=== PATIENT | female | born 1965 | race Caucasian/White ===

== ENCOUNTER 2022-07-29 10:18 | Emergency (ER) | payer BC ==
[~2022-07-29] VITALS: Ht 162.6 cm; Wt 98.4 kg
[~2022-07-29 10:18] MED LIST: PROG100
[2022-07-29 11:00] LABS: BASOPHILS ABSOLUTE AUTO 0.07 K/mm3 (0.00-0.23); BASOPHILS PERCENT AUTO 0 % (0-2); EOSINOPHILS ABSOLUTE AUTO 0.09 K/mm3 (0.00-0.68); EOSINOPHILS PERCENT AUTO 0 % (0-6); Hemoglobin 14.5 g/dL (11.5-16.0); IMMATURE GRAN ABSOLUTE AUTO 0.08 K/mm3 (0.00-0.10); IMMATURE GRAN PERCENT AUTO 0 % (0-1); LYMPHOCYTES ABSOLUTE AUTO 1.31 K/mm3 (0.84-5.20); LYMPHOCYTES PERCENT AUTO 6 % (21-46); MONOCYTES ABSOLUTE AUTO 1.23 K/mm3 (0.16-1.47); MONOCYTES PERCENT AUTO 6 % (4-13); Mean Corpuscular HGB Conc 33.7 g/dL (31.5-36.5); Mean Corpuscular Volume 89 fL (80-100); Mean Platelet Volume 10.2 fL (9.1-12.4); NEUTROPHILS ABSOLUTE AUTO 19.47 K/mm3 (1.96-9.15); NEUTROPHILS PERCENT AUTO 88 % (41-73); Platelet Count 370 K/mm3 (150-400); RDW Coefficient Variation 13.6 % (11.7-14.2); RDW Standard Deviation 44.5 fL (35.1-46.3); Red Blood Cell Count 4.83 M/mm3 (3.80-5.20); White Blood Cell Count 22.25 K/mm3 (4.00-11.30)
[2022-07-29 11:20] LABS: Albumin, Blood 3.5 g/dL (3.4-5.0); Albumin/Globulin Ratio 0.9 (0.8-1.8); Bilirubin, Total 0.7 mg/dL (0.1-1.0); Bun/Creatinine Ratio 10.3 (12.0-20.0); Calcium, Blood 9.4 mg/dL (8.5-10.1); Creatinine, Blood 0.49 mg/dL (0.40-1.00); Globulin, Blood 3.9 g/dL (2.2-4.0); Potassium, Blood 3.2 mmol/L (3.5-5.5); Total Protein, Blood 7.4 g/dL (6.4-8.2)
[2022-07-29 12:40] LABS: Influenza A, PCR NEGATIVE (NEGATIVE); Influenza B, PCR NEGATIVE (NEGATIVE); Resp Syncytial Virus, PCR NEGATIVE (NEGATIVE); SARS-Cov-2 (COVID-19) PCR, MMC NEGATIVE (NEGATIVE)
[2022-07-29] MEDS ORDERED: BUDESONIDE-FO10.2 G2 INH (13:41)
[2022-07-29] MEDS ORDERED: AMLODIPINE BESY10 MG PO (13:42)
[2022-07-29] MEDS ORDERED: ZESTRIL40 M1 PO (13:42)
[2022-07-29] MEDS ORDERED: BUPROPION XL150 M1 PO (13:43)
[2022-07-29] MEDS ORDERED: Ventolin/Prove6.7 GM (13:43)
[2022-07-29] MEDS ORDERED: Bentyl10 MG PO (13:43)
[2022-07-29] MEDS ORDERED: FLUT.05NI (13:44)
[2022-07-29] MEDS ORDERED: OMEPRAZOLE MAGN20 M1 PO (13:44)
[2022-07-29] MEDS ORDERED: Ventolin5 MG/1 ML INH (13:45)
[2022-07-29] MEDS ORDERED: DOXY100 PO ×2 (15:04→15:19)
[2022-07-29] MEDS ORDERED: AMOCLA875 PO ×2 (15:04→15:19)
== END 2022-07-29 16:14 | disposition home or self-care (01) ==
LOC: ER 10:18
PROVIDERS: Physician Assistant; Student in an Organized Health Care Education/Training Program
DX: J18.9 Pneumonia, unspecified organism (principal); R07.9 Chest pain, unspecified; J45.909 Unspecified asthma, uncomplicated; Z20.822 Contact with and (suspected) exposure to COVID-19; E87.6 Hypokalemia
CPT/HCPCS: 0241U; 36415; 71046; 71260; 80053; 83690; 83880; 84484; 85025; 85379; 93005; 93010; A9270; J0456; J0696; J7050; Q9967

== ENCOUNTER 2022-08-23 12:15 | Emergency (ER) | payer BC ==
[~2022-08-23] VITALS: Ht 162.6 cm; Wt 95.2 kg
[~2022-08-23 12:15] MED LIST changes: +AMLODIPINE BESY10 MG PO; +AMOCLA875 PO; +BUDESONIDE-FO10.2 G2 INH; +BUPROPION XL150 M1 PO; +Bentyl10 MG PO; +DOXY100 PO; +FLUT.05NI; +OMEPRAZOLE MAGN20 M1 PO; +Ventolin/Prove6.7 GM; +Ventolin5 MG/1 ML INH; +ZESTRIL40 M1 PO
[2022-08-23 13:10] LABS: BASOPHILS ABSOLUTE AUTO 0.08 K/mm3 (0.00-0.23); BASOPHILS PERCENT AUTO 1 % (0-2); EOSINOPHILS ABSOLUTE AUTO 0.33 K/mm3 (0.00-0.68); EOSINOPHILS PERCENT AUTO 3 % (0-6); Hematocrit 42.7 % (33.0-51.0); Hemoglobin 15.1 g/dL (11.5-16.0); IMMATURE GRAN ABSOLUTE AUTO 0.05 K/mm3 (0.00-0.10); IMMATURE GRAN PERCENT AUTO 1 % (0-1); LYMPHOCYTES ABSOLUTE AUTO 1.71 K/mm3 (0.84-5.20); LYMPHOCYTES PERCENT AUTO 16 % (21-46); MONOCYTES ABSOLUTE AUTO 1.11 K/mm3 (0.16-1.47); MONOCYTES PERCENT AUTO 10 % (4-13); Mean Corpuscular HGB 30.8 pg (26.0-34.0); Mean Corpuscular HGB Conc 35.4 g/dL (31.5-36.5); Mean Corpuscular Volume 87 fL (80-100); Mean Platelet Volume 9.7 fL (9.1-12.4); NEUTROPHILS ABSOLUTE AUTO 7.47 K/mm3 (1.96-9.15); NEUTROPHILS PERCENT AUTO 70 % (41-73); Platelet Count 409 K/mm3 (150-400); RDW Coefficient Variation 13.4 % (11.7-14.2); RDW Standard Deviation 42.6 fL (35.1-46.3); White Blood Cell Count 10.75 K/mm3 (4.00-11.30)
[2022-08-23 13:29] LABS: Albumin, Blood 3.6 g/dL (3.4-5.0); Albumin/Globulin Ratio 0.8 (0.8-1.8); Bilirubin, Total 0.5 mg/dL (0.1-1.0); Calcium, Blood 9.2 mg/dL (8.5-10.1); Creatinine, Blood 0.5 mg/dL (0.40-1.00); Globulin, Blood 4.3 g/dL (2.2-4.0); Total Protein, Blood 7.9 g/dL (6.4-8.2)
[2022-08-23 13:48] LABS: Influenza A, PCR NEGATIVE (NEGATIVE); Influenza B, PCR NEGATIVE (NEGATIVE); Resp Syncytial Virus, PCR NEGATIVE (NEGATIVE); SARS-Cov-2 (COVID-19) PCR, MMC NEGATIVE (NEGATIVE)
== END 2022-08-23 16:03 | disposition home or self-care (01) ==
LOC: ER 12:15
PROVIDERS: Emergency Medicine
DX: M54.6 Pain in thoracic spine (principal); R06.02 Shortness of breath; E87.1 Hypo-osmolality and hyponatremia; R53.83 Other fatigue; J45.909 Unspecified asthma, uncomplicated; Z20.822 Contact with and (suspected) exposure to COVID-19; Z88.6 Allergy status to analgesic agent; Z79.899 Other long term (current) drug therapy; Z87.891 Personal history of nicotine dependence
CPT/HCPCS: 0241U; 36415; 71046; 80053; 84484; 85025; 93005; 93010; 99284-25; J7030

== ENCOUNTER 2022-10-14 12:08 | Emergency (ER) | payer BC ==
[2022-10-14] MEDS ORDERED: Amoxicillin875 MG PO (15:49)
[2022-10-14] MEDS ORDERED: Prednisone20 MG PO (15:49)
== END 2022-10-14 16:05 | disposition home or self-care (01) ==
DX: R05.9 Cough, unspecified (principal); I10 Essential (primary) hypertension; J45.909 Unspecified asthma, uncomplicated; Z79.899 Other long term (current) drug therapy; Z88.8 Allergy status to other drugs, medicaments and biological substances; Z87.891 Personal history of nicotine dependence; Z20.822 Contact with and (suspected) exposure to COVID-19

== ENCOUNTER 2023-01-25 11:35 | Emergency (ER) | payer BC ==
[~2023-01-25] VITALS: Ht 162.6 cm; Wt 94.8 kg
[~2023-01-25 11:35] MED LIST changes: +Amoxicillin875 MG PO; +Prednisone20 MG PO
[2023-01-25 12:21] LABS: BASOPHILS ABSOLUTE AUTO 0.07 K/mm3 (0.00-0.23); BASOPHILS PERCENT AUTO 1 % (0-2); EOSINOPHILS ABSOLUTE AUTO 0.62 K/mm3 (0.00-0.68); EOSINOPHILS PERCENT AUTO 4 % (0-6); Hemoglobin 13.7 g/dL (11.5-16.0); IMMATURE GRAN ABSOLUTE AUTO 0.03 K/mm3 (0.00-0.10); IMMATURE GRAN PERCENT AUTO 0 % (0-1); LYMPHOCYTES ABSOLUTE AUTO 1.51 K/mm3 (0.84-5.20); LYMPHOCYTES PERCENT AUTO 11 % (21-46); MONOCYTES ABSOLUTE AUTO 1.12 K/mm3 (0.16-1.47); MONOCYTES PERCENT AUTO 8 % (4-13); Mean Corpuscular HGB 30.2 pg (26.0-34.0); Mean Corpuscular HGB Conc 34.3 g/dL (31.5-36.5); Mean Corpuscular Volume 88 fL (80-100); Mean Platelet Volume 10.4 fL (9.1-12.4); NEUTROPHILS ABSOLUTE AUTO 10.71 K/mm3 (1.96-9.15); NEUTROPHILS PERCENT AUTO 76 % (41-73); Platelet Count 444 K/mm3 (150-400); RDW Standard Deviation 41.4 fL (35.1-46.3); Red Blood Cell Count 4.54 M/mm3 (3.80-5.20); White Blood Cell Count 14.06 K/mm3 (4.00-11.30)
[2023-01-25 12:38] LABS: Albumin, Blood 3.1 g/dL (3.4-5.0); Albumin/Globulin Ratio 0.8 (0.8-1.8); Bilirubin, Total 0.4 mg/dL (0.1-1.0); Bun/Creatinine Ratio 12.1 (12.0-20.0); Creatinine, Blood 0.41 mg/dL (0.40-1.00); Globulin, Blood 3.9 g/dL (2.2-4.0); Potassium, Blood 3.8 mmol/L (3.5-5.5)
[2023-01-25 13:43] LABS: Source, Urine Clean Catch
[2023-01-25 14:03] LABS: Appearance, Urine Hazy (Clear); Bilirubin, Urine Neg (Neg); Blood, Urine 3+ (Neg); Color, Urine Yellow (P-Yellow); Glucose Qualitative, Urine Neg (Neg); Ketones, Urine Neg (Neg); Leukocyte Esterase, Urine 2+ (Neg); Nitrite, Urine Neg (Neg); Protein, Urine 1+ (Neg); Specific Gravity, Urine 1.015 (1.003-1.022); Urobilinogen, Urine NORM (Normal)
[2023-01-25 14:35] LABS: Red Blood Cells, Urine 0-2 /hpf (0-2)
[2023-01-25 14:36] LABS: Bacteria Mod /hpf; Squamous Epithelial Cells Mod /hpf (Few)
[2023-01-25 16:38] LABS: International Normalized Ratio 0.98; Prothrombin Time Results 10.3 Sec (9.7-11.5)
[2023-01-25 18:16] LABS: Automated BF RBC Count 0.005 M/mm3 (0-0); Automated BF WBC Count 3.984 K/mm3 (0-999)
[2023-01-25 18:18] LABS: Body Fluid WBC Count 3984 /mm3 (0-999); RBC Count, Body Fluid 5000 /mm3 (0-0)
[2023-01-25 18:37] LABS: Glucose, Body Fluid 95 mg/dL; Lactate Dehydrogenase, Body Fl 208 U/L; Protein, Body Fluid 4.3 g/dL
[2023-01-25 18:39] LABS: Appearance, Body Fluid Hazy (Clear); Color, Body Fluid Yellow (None-Yellow)
[2023-01-25 18:52] LABS: Total Cell Count, Body Fluid 100
[2023-01-25] MEDS ORDERED: AMOCLA875 PO ×3 (19:18→19:19)
[2023-01-26] MEDS ORDERED: AMOCLA875 PO (09:43)
[2023-01-26] MEDS ORDERED: OXYC1L PO (09:48)
== END 2023-01-25 19:30 | disposition home or self-care (01) ==
LOC: ER 11:35
PROVIDERS: Emergency Medicine; Student in an Organized Health Care Education/Training Program
DX: J90 Pleural effusion, not elsewhere classified (principal); D72.829 Elevated white blood cell count, unspecified; J45.909 Unspecified asthma, uncomplicated; I10 Essential (primary) hypertension; G51.0 Bell's palsy; F17.290 Nicotine dependence, other tobacco product, uncomplicated; Z79.899 Other long term (current) drug therapy; Z88.6 Allergy status to analgesic agent
CPT/HCPCS: 32555; 36415; 71045; 71046; 71260; 80053; 81001; 82945; 83615; 83880; 84157; 84484; 85025; 85610; 85730; 87077; 87086; 87186; 89051; A9270; Q9967

== ENCOUNTER 2023-01-26 07:56 | Emergency (ER) | payer BC ==
[~2023-01-26] VITALS: Ht 188 cm; Wt 95.9 kg
[2023-01-26 09:02] LABS: BASOPHILS ABSOLUTE AUTO 0.07 K/mm3 (0.00-0.23); BASOPHILS PERCENT AUTO 0 % (0-2); EOSINOPHILS ABSOLUTE AUTO 0.93 K/mm3 (0.00-0.68); EOSINOPHILS PERCENT AUTO 6 % (0-6); Hematocrit 41.5 % (33.0-51.0); IMMATURE GRAN ABSOLUTE AUTO 0.06 K/mm3 (0.00-0.10); IMMATURE GRAN PERCENT AUTO 0 % (0-1); LYMPHOCYTES ABSOLUTE AUTO 1.88 K/mm3 (0.84-5.20); LYMPHOCYTES PERCENT AUTO 12 % (21-46); MONOCYTES ABSOLUTE AUTO 1.36 K/mm3 (0.16-1.47); MONOCYTES PERCENT AUTO 9 % (4-13); Mean Corpuscular HGB 29.8 pg (26.0-34.0); Mean Corpuscular HGB Conc 33.7 g/dL (31.5-36.5); Mean Corpuscular Volume 88 fL (80-100); Mean Platelet Volume 10.4 fL (9.1-12.4); NEUTROPHILS PERCENT AUTO 73 % (41-73); Platelet Count 446 K/mm3 (150-400); RDW Coefficient Variation 12.9 % (11.7-14.2)
[2023-01-26 09:19] LABS: Albumin/Globulin Ratio 0.8 (0.8-1.8); Bilirubin, Total 0.5 mg/dL (0.1-1.0); Bun/Creatinine Ratio 9.9 (12.0-20.0); Calcium, Blood 9.1 mg/dL (8.5-10.1); Creatinine, Blood 0.51 mg/dL (0.40-1.00)
[2023-01-26] MEDS ORDERED: AMOCLA875 PO (09:43)
[2023-01-26] MEDS ORDERED: OXYC1L PO (09:48)
== END 2023-01-26 09:59 | disposition home or self-care (01) ==
LOC: ER 07:56
PROVIDERS: Physician Assistant
DX: J90 Pleural effusion, not elsewhere classified (principal); J45.909 Unspecified asthma, uncomplicated; F17.290 Nicotine dependence, other tobacco product, uncomplicated; Z88.6 Allergy status to analgesic agent; Z79.899 Other long term (current) drug therapy; Z98.890 Other specified postprocedural states
CPT/HCPCS: 71046; 80053; 84484; 85025; J1170

== ENCOUNTER → 2023-10-02 | Outpatient (CLI) | payer BC ==
[~2023-10-02] MED LIST changes: +AZIT250 PO; +METPRE4DP PO; +OXYC1L PO
== END ==
LOC: LAB SHORT 06:35 → LAB 06:35
DX: J18.9 Pneumonia, unspecified organism (principal)
CPT/HCPCS: 87070; 87077; 87185; 87205

== ENCOUNTER 2024-11-03 07:22 | Day surgery (SDC) | payer BC ==
[~2024-11-03] VITALS: Ht 162.6 cm; Wt 99.5 kg
[~2024-11-03 07:22] MED LIST changes: +BENZONATATE100 MG PO; +FAMO10 PO; +PSEU120ER PO
[2024-11-03] MEDS ORDERED: DUPIXENT P200 MG/1.1 SQ (08:08)
[2024-11-03] MEDS ORDERED: SPIRIVA RESPIMAT4 G3 IH (08:09)
[2024-11-03] MEDS ORDERED: Lactated Ringer's 1,000 ML IV ONE (08:19)
--- NOTE | 2024-11-03 09:03 | NUR ---
11/03/24 0903 HOMER RAYA PT UP TO RESTROOM TO VOID AGAIN PRIOR TO SURGERY
[2024-11-03] MEDS ORDERED: EPINEPhrine HCl 1 MG / ML 30ML Vial ONE (09:09)
[2024-11-03] MEDS ORDERED: Lidocaine 2%-Epineph 1:200000 20 ML SDV ONE (09:10)
[2024-11-03] MEDS ORDERED: propofoL 100 ML IV ONE (09:18)
[2024-11-03] MEDS ORDERED: Dexamethasone Sod Phos 10 MG/ML 1ML VIAL ONE (09:19)
[2024-11-03] MEDS ORDERED: Metoclopramide HCl 5MG / ML 2ML Vial ONE (09:19)
[2024-11-03] MEDS ORDERED: HYDROmorphone HCl/Pf 1MG SYR ONE (09:19)
[2024-11-03] MEDS ORDERED: Ondansetron HCl 2 MG / ML 2ML Vial ONE (09:19)
[2024-11-03] MEDS ORDERED: DiphenhydrAMINE HCl 50 MG/ML 1ML Vial ONE (09:20)
[2024-11-03] MEDS ORDERED: Lidocaine HCl 4% 5 ML SDA ONE (09:23)
[2024-11-03] MEDS ORDERED: Phenylephrine HCl 100 MCG/ML-NS 10MLSYR (1MG/10ML) ONE ×2 (09:37→10:15)
[2024-11-03] MEDS ORDERED: propofoL 40 ML IV ONE (09:38)
[2024-11-03] MEDS ORDERED: Rocuronium Bromide 10 MG/ML 5ML Injection IV ONE (09:39)
[2024-11-03] MEDS ORDERED: Sugammadex Sodium 200 MG/2ML SDV (100 MG/ML) ONE (09:39)
[2024-11-03] MEDS ORDERED: Lidocaine 2%-Epineph 1:200000 20 ML SDV XX ONE ×2 (09:55)
[2024-11-03] MEDS ORDERED: EPINEPhrine HCl 1 MG/ML 1ML Amp XX ONE (09:56)
--- NOTE | 2024-11-03 11:14 | NUR ---
11/03/24 1114 Tom Berry PT CAME IN PACU FROM OR. SUCTIONED MOUTH FROM SOME BLEEDING. 10L/MIN O2 FACE TENT PLACED ON PATIENT. 3-LEAD STARTED. MUSTACHE DRESSING PLACED FROM SOME NOSE BLEEDING.
[2024-11-03] MEDS ORDERED: OxyCODONE HCL 5 MG TAB ONE (11:42)
[2024-11-03 11:48] VITALS: BP 116/74
--- NOTE | 2024-11-03 12:41 | NUR ---
11/03/24 1241 Catie Carmona LATE ENTRY FOR 1210-ASSUMED CARE OF PATIENT FROM [facility] PERRY AND [facility] JON[facility]. PT STATES NO NAUSEA AND PAIN IS TOLERABLE. PT WOULD LIKE TO BE DISCHARGED HOME.
== END 2024-11-03 12:25 | disposition home or self-care (01) ==
LOC: ORSCSDS 07:22
PROVIDERS: Otolaryngology
PROC: 09SL0ZZ Reposition Nasal Turbinate, Open Approach (ICD-10-PCS; principal; 2024-11-03 09:00)
PROC: 09BM0ZZ Excision of Nasal Septum, Open Approach (ICD-10-PCS; principal; 2024-11-03 09:00)
DX: J34.2 Deviated nasal septum (principal); J34.3 Hypertrophy of nasal turbinates; I10 Essential (primary) hypertension; J44.89 Other specified chronic obstructive pulmonary disease; Z87.891 Personal history of nicotine dependence; K21.9 Gastro-esophageal reflux disease without esophagitis; Z79.899 Other long term (current) drug therapy
CPT/HCPCS: A9270; J0171; J1100; J1171; J1200; J2003; J2371; J2405; J2704; J2765

== ENCOUNTER → 2025-10-24 | Outpatient (CLI) | payer BC ==
[~2025-10-24] MED LIST changes: +DUPIXENT P200 MG/1.1 SQ; +SPIRIVA RESPIMAT4 G3 IH
== END ==
LOC: LAB 08:05 → LAB SHORT 08:05
DX: B07.8 Other viral warts (principal); B07.0 Plantar wart; D23.9 Other benign neoplasm of skin, unspecified
CPT/HCPCS: 88305